=== PATIENT | male | born 1965 | race Caucasian/White ===

== ENCOUNTER 2021-07-03 13:14 | Outpatient (CLI) | payer SELFPAY | END 2021-07-03 13:15 | disposition home or self-care (01) | LOC: WOUND 13:22 | PROVIDERS: Visit Provider Emergency Medicine | DX: L98.8 Other specified disorders of the skin and subcutaneous tissue (principal); F17.210 Nicotine dependence, cigarettes, uncomplicated | CPT/HCPCS: 99212 ==

== ENCOUNTER 2021-12-04 16:34 | Emergency (ER) | payer MEDICAID, SELFPAY ==
[2021-12-04 16:37] VITALS: BP 144/85; PULSE 99; RESP 18; TEMP 36.8; O2SAT 98; BMI 22.8
--- NOTE | 2021-12-04 16:37 | W.ED.PSYCHS ---
Documented by User: Curtis Robins MD 12/16/21 00:33 HPI - Psych General: Chief Complaint: Psychiatric Symptoms Stated Complaint: ETOH, PTSD, DEPRESSION Time Seen by Provider: 12/04/21 16:36 Limitations: altered mental status History of Present Illness: Mr. Manzanares is a 56-year-old gentleman without reported significant past medical history presents to the emergency department for mental health exam. The patient reports a history of depression which has spiraled out of control and approximately 1 year ago he started drinking again. He drinks about a 12 pack of beer a day. 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 Patient denies suicidal or homicidal ideation. He denies history of suicide attempts. Intensity of depression is moderate to severe. No other specific changes in health, exacerbating, or alleviating factors identified. Review of Systems General: Reports: 10 or more systems reviewed and unremarkable except in HPI and below PFSH ED PFSH: Family History Other CAD (coronary artery disease) Denies family history of Diabetes Cancer Hypertension Social History Smoking and tobacco status: current some day smoker Alcohol intake: current Physical Exam Const: COMMON NORMALS: alert GENERAL APPEARANCE: cooperative and well developed HENMT: COMMON NORMALS: normocephalic and atraumatic HEAD & SCALP: normocephalic and atraumatic Eye: COMMON NORMALS: conjunctivae normal CONJUNCTIVA: Yes conjunctivae normal SCLERA: sclerae normal Neck/C-Spine: COMMON NORMALS: supple GENERAL: Yes trachea midline Resp: COMMON NORMALS: normal respiratory effort EFFORT & INSPECTION: Yes able to speak in complete sentences Cardio: COMMON NORMALS: regular rate and regular rhythm RATE: regular rate RHYTHM: regular rhythm GI: COMMON NORMALS: Soft to palpation PALPATION: Yes Soft to palpation and No Tenderness to palpation present (GI) PERCUSSION: normal to percussion Extremity: GENERAL: Yes normal exam except as noted and No edema Neuro: COMMON NORMALS: moves all extremities SENSORIUM/ORIENTATION: Yes alert and No Orientation impaired OTHER: Patient appears clinically intoxicated Course ED course: - Patient was seen and evaluated by me at bedside - Vital signs obtained - Initial evaluation notable for exam as above, mild clinical intoxication - Labs personally interpreted by me - Labs notable for no leukocytosis, normal hemoglobin. Metabolic panel without acute derangement. Toxic ingestions negative with the exception of alcohol level which is 312 mg/dL. - Upon serial reexamination after treatment the patient was somewhat improved with regards to clinical intoxication - Though the patient denies suicidal or homicidal ideation I clarified history with the desk clerks supervisor that he was texting with. It sounds like in most of the text were regarding concern over immune system problems though upon clarification it does not sound like you seroconverted from hepatitis B vaccine. The patient did send a text which led to law enforcement being contacted saying I am just thinking about my . This was not provided with other context per report. Patient did not make other specific statements regarding suicide though seemed erratic and somewhat tangential. - The patient does have access to firearms, does abuse alcohol, and has very limited social support. He endorses hating his current job - Given these factors I believe the patient warrants further psychiatric evaluation. Based on ED evaluation at this point there is no obvious condition that would preclude the patient from inpatient management of psychiatric concerns. - Given his employment here we will pursue outside transfer for inpatient psychiatric management. -Handed off pending accepting facility versus a psychiatry service consult. Note: Click bubbles or prepopulated mercado in note writing are used for assistance with data collection and billing and are inherently more limited than narrative and other text portions of this note. Please use narrative for additional clinical history and defer to narrative/free test for any case of contradictory information. If information appears in only free text or click bubble it should be considered present or absent as reported. Please contact note global technical writer for clarifications of clinical information or contradictory information. MDM is a brief summary, contradictory or erroneous seeming information should be clarified and full note should be reviewed. Vital Signs: Vital signs: Vital Signs Temperature 98.2 F 12/04/21 16:37 Pulse Rate 70 12/05/21 03:26 Respiratory Rate 19 H 12/05/21 07:25 Blood Pressure 144/85 12/04/21 16:37 Pulse Oximetry 100 12/05/21 07:25 Oxygen Delivery Me thod 12/05/21 03:26 MDM - Psych Medical Records I reviewed the patient's medical records. Lab Data I reviewed the patient's lab results. : 12/04/21 17:15 12/04/21 17:15 Laboratory Results WBC 4.8 10^3/uL (4.0-10.0) 12/04/21 17:15 RBC 4.41 10^6/uL (4.1-5.3) 12/04/21 17:15 Hgb 14.5 g/dL (11.7-16.6) 12/04/21 17:15 Hct 43.5 % (42.0-52.0) 12/04/21 17:15 MCV 98.6 fl (80-94) H 12/04/21 17:15 MCH 32.9 pg (28.0-34.0) 12/04/21 17:15 MCHC 33.3 g/dL (30.0-36.0) 12/04/21 17:15 RDW 13.4 % (12.1-15.1) 12/04/21 17:15 Plt Count 252 10^3/cmm (130-400) 12/04/21 17:15 MPV 9.9 fL (7.4-10.4) 12/04/21 17:15 Neut % (Auto) 43.0 % 12/04/21 17:15 Lymph % (Auto) 40.0 % 12/04/21 17:15 [place] % (Auto) 5.7 % 12/04/21 17:15 Eos % (Auto) 9.9 % 12/04/21 17:15 Baso % (Auto) 1.0 % 12/04/21 17:15 Neut # (Auto) 2.05 10^3/uL (1.8-7.7) 12/04/21 17:15 Lymph # (Auto) 1.9 10^3/uL (0.8-4.8) 12/04/21 17:15 [place] # (Auto) 0.3 10^3/uL (0.2-0.9) 12/04/21 17:15 Eos # (Auto) 0.5 10^3/uL (0.0-0.8) 12/04/21 17:15 Baso # (Auto) 0.1 10^3/uL (0.0-0.1) 12/04/21 17:15 Nucleated RBC % (auto) 0 % 12/04/21 17:15 Nucleated RBCs # 0.0 /100WBC 12/04/21 17:15 Sodium 141 mmol/L (136-145) 12/04/21 17:15 Potassium 3.9 mmol/L (3.5-5.1) 12/04/21 17:15 Chloride 102 mmol/L (98-107) 12/04/21 17:15 Carbon Dioxide 25 mmol/L (22-29) 12/04/21 17:15 Anion Gap 17.9 (5-19) 12/04/21 17:15 BUN 8 mg/dL (6-20) 12/04/21 17:15 Creatinine 0.7 mg/dL (0.7-1.2) 12/04/21 17:15 GFR Calculation 117.5 mL/min (90-130) 12/04/21 17:15 Glucose 106 mg/dL (65-115) 12/04/21 17:15 Calculated Osmolality 291 mOsm/kg (285-295) 12/04/21 17:15 Calcium 8.8 mg/dL (8.5-10.5) 12/04/21 17:15 Total Bilirubin 0.2 mg/dL (0.15-1.2) 12/04/21 17:15 AST 32 U/L (0-40) 12/04/21 17:15 ALT 11 U/L (0-41) 12/04/21 17:15 Alkaline Phosphatase 80 IU/L (40-130) 12/04/21 17:15 Total Protein 7.9 g/dL (6.6-8.7) 12/04/21 17:15 Albumin 4.9 g/dL (3.5-5.2) 12/04/21 17:15 Globulin 3.0 g/dL (1.3-4.6) 12/04/21 17:15 TSH 0.88 uIU/mL (0.27-4.20) 12/04/21 17:15 Salicylates < 0.3 mg/dL (3-10) L 12/04/21 17:15 Urine Opiates Screen Negative ng/mL (Negative) 12/04/21 18:05 Acetaminophen < 5.0 ug/mL (10-30) L 12/04/21 17:15 Ur Barbiturates Screen Negative ng/mL (Negative) 12/04/21 18:05 Ur Phencyclidine Scrn Negative ng/mL (Negative) 12/04/21 18:05 Ur Amphetamines Screen Negative ng/mL (Negative) 12/04/21 18:05 U Benzodiazepines Scrn Negative ng/mL (Negative) 12/04/21 18:05 Urine Cocaine Screen Negative ng/mL (Negative) 12/04/21 18:05 U Marijuana (THC) Screen Negative ng/mL (Negative) 12/04/21 18:05 Ethyl Alcohol 312 mg/dL (0-10) H* 12/04/21 17:15 SARS-CoV-2 Ag (Rapid) Negative (Negative) 12/04/21 23:13 Discharge Plan Discharge Patient Disposition: Home Clinical Impression: Alcohol abuse, Depression Condition: Stable Prescriptions: No Action mupirocin 2 % ointment 1 applic topical BID Qty: 22 1RF Rx Instructions: Apply to affected area(s) until healed Otezla Starter 10 mg (4)-20 mg (4)-30 mg (47) tablets,dose pack See Rx Instructions PO PER PKG DIR Qty: 55 0RF Rx Instructions: PO PER PKG DIR Otezla 30 mg tablet 30 mg PO BID Qty: 60 5RF triamcinolone acetonide 0.1 % ointment 1 applic topical BID Qty: 453.6 1RF Rx Instructions: Apply to affected area twice daily for 3 weeks. Not for face. Discharge Orders: Discharge ED (Routine); Ordered 12/05/21 Ordered By: Andres Calvert Patient Instructions: Opioid Safety Activity Restrictions/Additional Instructions: Recommend abstinence from alcohol. Follow-up at [facility] or resume meetings with AA. Sign Out Sign Out Data: Patient Sign Out occurred on 12/05/21 at 06:28. Patient's care was discussed, and care was transferred from to Andres Calvert DO. Coding Level of Care Code ED Loan Servicing Officer for [place] Fwd Exam Comprehensive Documented by User: Andres Calvert DO 12/07/21 06:21 HPI - Psych General: Chief Complaint: Psychiatric Symptoms Stated Complaint: ETOH, PTSD, DEPRESSION Time Seen by Provider: 12/04/21 16:36 PFSH ED PFSH: Family History Other CAD (coronary artery disease) Denies family history of Diabetes Cancer Hypertension Social History Smoking and tobacco status: current some day smoker Alcohol intake: current Course Vital Signs: Vital signs: Vital Signs Temperature 98.2 F 12/04/21 16:37 Pulse Rate 70 12/05/21 03:26 Respiratory Rate 19 H 12/05/21 07:25 Blood Pressure 144/85 12/04/21 16:37 Pulse Oximetry 100 12/05/21 07:25 Oxygen Delivery Me thod 12/05/21 03:26 MDM - Psych Medical Decision Making Care assumed at change of shift. Reviewed chart. Discussed with patient is no longer homicidal or suicidal I discussed with Dr. Zavala he is feel after reviewing the entire case that the patient needs to be admitted at this point. He advises discharge home recommends abstinence. Discussed with patient abstinence from alcohol. Encourage patient to pursue outpatient treatment program such as [facility] or participating in [facility]. Lab Data : 12/04/21 17:15 12/04/21 17:15 Laboratory Results WBC 4.8 10^3/uL (4.0-10.0) 12/04/21 17:15 RBC 4.41 10^6/uL (4.1-5.3) 12/04/21 17:15 Hgb 14.5 g/dL (11.7-16.6) 12/04/21 17:15 Hct 43.5 % (42.0-52.0) 12/04/21 17:15 MCV 98.6 fl (80-94) H 12/04/21 17:15 MCH 32.9 pg (28.0-34.0) 12/04/21 17:15 MCHC 33.3 g/dL (30.0-36.0) 12/04/21 17:15 RDW 13.4 % (12.1-15.1) 12/04/21 17:15 Plt Count 252 10^3/cmm (130-400) 12/04/21 17:15 MPV 9.9 fL (7.4-10.4) 12/04/21 17:15 Neut % (Auto) 43.0 % 12/04/21 17:15 Lymph % (Auto) 40.0 % 12/04/21 17:15 [place] % (Auto) 5.7 % 12/04/21 17:15 Eos % (Auto) 9.9 % 12/04/21 17:15 Baso % (Auto) 1.0 % 12/04/21 17:15 Neut # (Auto) 2.05 10^3/uL (1.8-7.7) 12/04/21 17:15 Lymph # (Auto) 1.9 10^3/uL (0.8-4.8) 12/04/21 17:15 [place] # (Auto) 0.3 10^3/uL (0.2-0.9) 12/04/21 17:15 Eos # (Auto) 0.5 10^3/uL (0.0-0.8) 12/04/21 17:15 Baso # (Auto) 0.1 10^3/uL (0.0-0.1) 12/04/21 17:15 Nucleated RBC % (auto) 0 % 12/04/21 17:15 Nucleated RBCs # 0.0 /100WBC 12/04/21 17:15 Sodium 141 mmol/L (136-145) 12/04/21 17:15 Potassium 3.9 mmol/L (3.5-5.1) 12/04/21 17:15 Chloride 102 mmol/L (98-107) 12/04/21 17:15 Carbon Dioxide 25 mmol/L (22-29) 12/04/21 17:15 Anion Gap 17.9 (5-19) 12/04/21 17:15 BUN 8 mg/dL (6-20) 12/04/21 17:15 Creatinine 0.7 mg/dL (0.7-1.2) 12/04/21 17:15 GFR Calculation 117.5 mL/min (90-130) 12/04/21 17:15 Glucose 106 mg/dL (65-115) 12/04/21 17:15 Calculated Osmolality 291 mOsm/kg (285-295) 12/04/21 17:15 Calcium 8.8 mg/dL (8.5-10.5) 12/04/21 17:15 Total Bilirubin 0.2 mg/dL (0.15-1.2) 12/04/21 17:15 AST 32 U/L (0-40) 12/04/21 17:15 ALT 11 U/L (0-41) 12/04/21 17:15 Alkaline Phosphatase 80 IU/L (40-130) 12/04/21 17:15 Total Protein 7.9 g/dL (6.6-8.7) 12/04/21 17:15 Albumin 4.9 g/dL (3.5-5.2) 12/04/21 17:15 Globulin 3.0 g/dL (1.3-4.6) 12/04/21 17:15 TSH 0.88 uIU/mL (0.27-4.20) 12/04/21 17:15 Salicylates < 0.3 mg/dL (3-10) L 12/04/21 17:15 Urine Opiates Screen Negative ng/mL (Negative) 12/04/21 18:05 Acetaminophen < 5.0 ug/mL (10-30) L 12/04/21 17:15 Ur Barbiturates Screen Negative ng/mL (Negative) 12/04/21 18:05 Ur Phencyclidine Scrn Negative ng/mL (Negative) 12/04/21 18:05 Ur Amphetamines Screen Negative ng/mL (Negative) 12/04/21 18:05 U Benzodiazepines Scrn Negative ng/mL (Negative) 12/04/21 18:05 Urine Cocaine Screen Negative ng/mL (Negative) 12/04/21 18:05 U Marijuana (THC) Screen Negative ng/mL (Negative) 12/04/21 18:05 Ethyl Alcohol 312 mg/dL (0-10) H* 12/04/21 17:15 SARS-CoV-2 Ag (Rapid) Negative (Negative) 12/04/21 23:13 Discharge Plan Discharge Patient Disposition: Home Clinical Impression: Alcohol abuse, Depression Condition: Stable Prescriptions: No Action mupirocin 2 % ointment 1 applic topical BID Qty: 22 1RF Rx Instructions: Apply to affected area(s) until healed Otezla Starter 10 mg (4)-20 mg (4)-30 mg (47) tablets,dose pack See Rx Instructions PO PER PKG DIR Qty: 55 0RF Rx Instructions: PO PER PKG DIR Otezla 30 mg tablet 30 mg PO BID Qty: 60 5RF triamcinolone acetonide 0.1 % ointment 1 applic topical BID Qty: 453.6 1RF Rx Instructions: Apply to affected area twice daily for 3 weeks. Not for face. Discharge Orders: Discharge ED (Routine); Ordered 12/05/21 Ordered By: Andres Calvert Patient Instructions: Opioid Safety Activity Restrictions/Additional Instructions: Recommend abstinence from alcohol. Follow-up at [facility] or resume meetings with AA. Sign Out Sign Out Data: Patient Sign Out occurred on 12/05/21 at 06:28. Patient's care was discussed, and care was transferred from to Andres Calvert DO. Coding Level of Care Code ED Loan Servicing Officer for [place] Fwd Exam Comprehensive
[2021-12-04 17:19] LABS: Basophils # 0.1 10^3/uL (0.0-0.1); Eosinophils # 0.5 10^3/uL (0.0-0.8); Eosinophils % 9.9 %; Hematocrit 43.5 % (42.0-52.0); Hemoglobin 14.5 g/dL (11.7-16.6); Lymphocytes # 1.9 10^3/uL (0.8-4.8); Mean Corpuscular HGB Conc 33.3 g/dL (30.0-36.0); Mean Corpuscular Hemoglobin 32.9 pg (28.0-34.0); Mean Corpuscular Volume 98.6 fl (80-94); Mean Platelet Volume 9.9 fL (7.4-10.4); Monocytes # 0.3 10^3/uL (0.2-0.9); Monocytes % 5.7 %; Neutrophils # 2.05 10^3/uL (1.8-7.7); Nucleated Red Blood Cells % 0 %; Platelet Count 252 10^3/cmm (130-400); Red Blood Count 4.41 10^6/uL (4.1-5.3); Red Cell Distribution Width 13.4 % (12.1-15.1); White Blood Count 4.8 10^3/uL (4.0-10.0)
[2021-12-04 17:54] LABS: Alanine Aminotransferase 11 U/L (0-41); Albumin Level 4.9 g/dL (3.5-5.2); Alkaline Phosphatase 80 IU/L (40-130); Anion Gap 17.9 (5-19); Aspartate Amino Transferase 32 U/L (0-40); Blood Urea Nitrogen 8 mg/dL (6-20); Calcium 8.8 mg/dL (8.5-10.5); Carbon Dioxide 25 mmol/L (22-29); Chloride 102 mmol/L (98-107); Glomerular Filtration Rate 117.5 mL/min (90-130); Glucose 106 mg/dL (65-115); Osmolality Calculated 291 mOsm/kg (285-295); Potassium 3.9 mmol/L (3.5-5.1); Sodium 141 mmol/L (136-145); Thyroid Stimulating Hormone 0.88 uIU/mL (0.27-4.20); Total Bilirubin 0.2 mg/dL (0.15-1.2); Total Protein 7.9 g/dL (6.6-8.7)
[2021-12-04 17:57] LABS: Acetaminophen < 5.0 ug/mL (10-30); Salicylate < 0.3 mg/dL (3-10)
[2021-12-04 18:00] LABS: Alcohol Level 312 mg/dL (0-10)
[2021-12-04 18:42] LABS: Amphetamines Screen Urine Negative (Negative); Barbiturates Screen Urine Negative (Negative); Benzodiazepines Screen Urine Negative (Negative); Cocaine Screen Urine Negative (Negative); Opiate Screen Urine Negative (Negative); PCP Screen Urine Negative (Negative); THC Screen Urine Negative (Negative)
--- NOTE | 2021-12-04 23:17 | PC.NURSE ---
clarified with dr hopper that patient is being placed for psychiatric care, and that if he attempted to leave, he will be placed on an involuntary hold.
[2021-12-04 23:38] LABS: SARS Covid-2 Antigen Negative (Negative)
[2021-12-05 03:26] VITALS: PULSE 70; RESP 17; O2SAT 100
[2021-12-05 07:25] VITALS: RESP 19; O2SAT 100
== END 2021-12-05 07:26 | disposition home or self-care (01) ==
PROVIDERS: Emergency Medicine; Emergency Provider Family Medicine; PCP Nurse Practitioner Family
DX: F10.10 Alcohol abuse, uncomplicated (principal); Y90.8 Blood alcohol level of 240 mg/100 ml or more; F32.A Depression, unspecified; Z20.822 Contact with and (suspected) exposure to COVID-19; F17.210 Nicotine dependence, cigarettes, uncomplicated
CPT/HCPCS: 80053; 80306; 80307; 84443; 85025; 87426; 99284

== ENCOUNTER 2025-02-17 07:08 | Inpatient (IN) | payer MEDICAID, SELFPAY ==
[2025-02-17] VITALS (16 sets, daily range): BP systolic 115–174; BP diastolic 72–105; PULSE 85–109; RESP 16–18; TEMP 36.7–37.1; O2SAT 92–98; BMI 22.8; BMI 26.8
--- OUTSIDE RECORDS SUMMARY | 2025-02-17 07:12 | XMS_ITS | Clinical Summary ---
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 Very hard 07/07/2021 Food Insecurity Answer Date Recorded In the past 12 months, have you worried that your food would run out before you had money to buy more? Often true 07/07/2021 In the past 12 months, did y ou run out of food and didn't have money to buy more? Often true 07/07/2021 Transportation Needs Answer Date Record ed In the past 12 months, has l ack of transportation kept you from medical appointments or from getting medications? Yes 07/07/2021 In the past 12 months, has l ack of transportation kept you from meetings, work, or from getting things needed for daily living? Patient declined 07/07/2021 Housing Stability Answer Date Recorded In the last 12 months, was t here a time when you were not able to pay the mortgage or rent on time? Yes 07/08/19 22 Number of Times Moved in the Last Year Not on fi le 07/07/2021 At any time in the past 12 m [facility], were you homeless or living in a prison (including now)? Patient refused 07/07/2021 Sex and Gender Information Value Date Recorded Sex Assigned at Not on file Legal Sex Male 2:41 PM HAND ROLLER Gender Identity Not on file Sexual Orientation Not on file Last Filed Vital Signs Vital Sign Reading Time Taken Comments Blood Pressure 142/80 07/04/2021 2:45 PM HAND ROLLER Pulse 99 07/04/2021 2:45 PM HAND ROLLER Temperature 37.3 C (99.1 F) 07/04/2021 2:45 PM HAND ROLLER Respiratory Rate 18 07/04/2021 2:45 PM HAND ROLLER Oxygen Saturation 100% 07/04/2021 2:45 PM HAND ROLLER Inhaled Oxygen Concentration - - Weight 65.8 kg (145 lb) 07/04/2021 2:45 PM HAND ROLLER Height - - Body Mass Index - - Plan of Treatment Health Maintenance Due Date Last Done Comments DTAP/TDAP/TD VACCINES (1 - Tdap) 11/23/1986 HEPATITIS B VACCINES (1 of 3 - 19+ 3-dose series) 11/01 COLORECTAL SCREENING 11/23/2012 Colorectal Cancer Screening 11/23/2012 FIT-DNA Q 3 years 11/23/2012 FIT/FOBT Q 1 year 11/23/2012 Flex Sig/CT Colonography Q 5 years 11/23/2012 ZOSTER VACCINE (1 of 2) 11/23/2017 INFLUENZA VACCINE (#1) 2024
--- NOTE | 2025-02-17 07:15 | XRR_ITS ---
PROCEDURE INFORMATION: Exam: XR Left Foot Exam date and time: 02/17/2025 7:18 AM Age: 59 years old Clinical indication: Swelling, leg or foot; Big toe swollen; Additional info: Great toe infection TECHNIQUE: Imaging protocol: Radiologic exam of the left foot. Views: 3 or more views. COMPARISON: No relevant prior studies available. FINDINGS: Bones/joints: See Soft tissues finding. Soft tissues: There is a retained curvilinear metallic foreign body in the plantar aspect of the 1st digit measuring 7 mm with surrounding soft tissue gas and swelling. Multiple additional smaller apparent calcifications superimposed within the plantar soft tissues. There is mild cortical obscuration of the medial aspect of the 1st digit proximal phalangeal head and distal phalangeal base. Underlying advanced degenerative changes of the 1st IP joint. There are moderate degenerative changes of the 1st MTP joint. XR/XR foot LT min 3V* [id number] IMPRESSION: 1. Retained 7 mm curvilinear metallic foreign body in the plantar soft tissues of the 1st digit with surrounding soft tissue gas and swelling as well as small calcifications, likely additional foreign material versus dystrophic change. 2. Mild cortical irregularity of the proximal and distal phalanges of the 1st digit, possibly reactive or infectious. Early osteomyelitis cannot be excluded. 3. Advanced degenerative changes of the 1st IP and MTP joints. 4. MRI and/or surgical evaluation may be warranted based on clinical context.
--- NOTE | 2025-02-17 07:18 | ED_ITS ---
HPI - Wound/Laceration 2 General: Chief Complaint: Wound/Laceration Stated Complaint: left great toe infection Time Seen by Provider: 02/17/25 07:10 History of Present Illness: 59-year-old man with a history of anxiet y and depression who presents emergency room with left great toe pain. He said he had a callus that he pulled off about 3 months ago and it has been getting worse and worse. The toe started swelling and then became more painful. He says today he realized that it was out of his hands and so he called an ambulance. Apparently had to walk half a mile down his driveway because it was washed out to get to the ambulance. No fevers. No altered mental status. No chest pain. No abdominal pain no nausea or vomiting. Related Data Previous Rx's ?Medication ?Instructions ?Recorded clobetasol 0.05 % topical ointment 1 applic topical BI D 2 weeks #60 06/23/22 grams mupirocin 2 % topical ointment 1 applic topical BID #2 2 grams 06/23/22 triamcinolone acetonide 0.1 % 1 applic topical BID #45 3.6 grams 06/23/22 topical ointment trazodone 50 mg tablet 100 mg (2 x 50 mg) PO .HS LA N 11/17/23 insomnia #60 tabs aripiprazole 2 mg tablet (Abilify) 2 mg PO DAILY #30 t abs 08/23/24 sertraline 100 mg tablet (Zoloft) 150 mg (1.5 x 100 mg ) PO DAILY #45 08/23/24 tabs Allergies Allergy/AdvReac Type Severity Reaction Status Date / Time fluoxetine (From Prozac) Allergy Intermediate ADR-Nausea Verified 08/23/24 14:51 Review of Systems 2 Narrative: Constitutional symptoms: Negative except as documented in HPI. Skin symptoms: Negative except as documented in HPI. Eye symptoms: Negative except as documented in HPI. ENMT symptoms: Negative except as documented in HPI. Respiratory symptoms: Negative except as documented in HPI. Cardiovascular symptoms: Negative except as documented in HPI. Gastrointestinal symptoms: Negative except as documented in HPI. Genitourinary symptoms: Negative except as documented in HPI. Musculoskeletal symptoms: Negative except as documented in HPI. Neurologic symptoms: Negative except as documented in HPI. Psychiatric symptoms: Negative except as documented in HPI. Endocrine symptoms: Negative except as documented in HPI. [facility] ED 2 PFSH: Medical History (Updated 02/17/25 @ 08:16 by Rossi Mtz MD) Psychiatric care Surgical History No pertinent past surgical history Family History Other CAD (coronary artery disease) Denies family history of Diabetes Cancer Hypertension Social History Smoking and tobacco/nicotine status: former use of tobacco/nicotine Alcohol intake: current Physical Exam 2 Narrative: EXAM NARRATIVE: General: Alert, no acute distress. Skin: Warm, dry. Head: Normocephalic, atraumatic. Neck: Supple, trachea midline. Eye: Extraocular movements are intact. Ears, nose, mouth and throat: mucosa moist. Cardiovascular: Regular, Normal peripheral perfusion. Respiratory: Lungs are clear to auscultation, respirations are non-labored, breath sounds are equal, Symmetrical chest wall expansion. Gastrointestinal: Soft, Nontender, Non distended Musculoskeletal: Normal ROM, no deformity. Neurological: Alert and oriented, No focal neurological deficit observed. Psychiatric: Cooperative, appropriate mood & affect. Course 2 Vital Signs: Vital signs: Vital Signs Temperature 98.2 F 02/17/25 07:10 Pulse Rate 97 02/17/25 07:39 Respiratory Rate 17 02/17/25 07:10 Blood Pressure 135/97 02/17/25 07:39 Pulse Oximetry 98 02/17/25 07:39 Oxygen Delivery Me thod Room Air 02/17/25 07:10 MDM - Wound/Laceration Medical Decision Making Medical decision making: Differential diagnosis including but not limited to and based on the above HPI, review of systems and physical exam: In this patient with toe infection would have concern for osteomyelitis or systemic infection. Basic labs and inflammatory markers are being obtained. Orders placed to evaluate differential diagnosis based on the above differential, HPI and physical exam X-ray of the right foot: Apparent metallic foreign body with destructive disease to the distal great toe. Appears to have osteomyelitis. Films were interpreted by myself the emergency room provider and pending final radiology review. Lab Review: Laboratory results were reviewed and interpreted by myself the emergency room physician. No leukocytosis but patient does have elevated CRP at 30 and ESR at 59. Lactate is not elevated. Renal function is normal. No anemia. I reviewed the patient's medical record. Reexamination: Patient remained stable. No increased work of breathing. No altered mental status. No focal motor deficits. Consultation: I spoke with Dr. Terry who is on-call for podiatry. He recommends Vanco and Zosyn. He has cultured the toe. Admit to hospitalist and he will likely operate on Wednesday Consultation: I spoke with Dr. Crisostomo who is on-call for the hospitalist service who agrees to admission Assessment and plan: Great toe osteomyelitis ?IV vancomycin and Zosyn in the emergency room -I discussed the patient with the hospitalist on-call who is admitting the patient. - Discussed findings and plan with patient. Answered any questions. - All laboratory values were reviewed and interpreted personally by myself, the ER physician - All imaging was reviewed and interpreted personally by myself, the ER physician. - Evaluation and treatment of this problem were appropriate in the emergency setting Lab Data 02/17/25 07:22 02/17/25 07:22 Laboratory Results WBC 6.72 10^3/uL (3.29-11.43) 02/17/25 07:22 RBC 4.78 10^6/uL (3.85-5.65) 02/17/25 07:22 Hgb 14.80 g/dL (11.27-16.99) 02/17/25 07:22 Hct 44.0 % (37-53) 02/17/25 07:22 MCV 92.1 fl (82-101) 02/17/25 07:22 MCH 31.0 pg (27-33) 02/17/25 07:22 MCHC 33.6 g/dL (30-55) 02/17/25 07:22 RDW 13.4 % (12.1-15.1) 02/17/25 07:22 Plt Count 282 10^3/cmm (157-399) 02/17/25 07:22 MPV 10.2 fL (7.4-10.4) 02/17/25 07:22 Neut % (Auto) 48.9 % 02/17/25 07:22 Lymph % (Auto) 31.1 % 02/17/25 07:22 Glascock % (Auto) 11.3 % 02/17/25 07:22 Eos % (Auto) 7.9 % 02/17/25 07:22 Baso % (Auto) 0.4 % 02/17/25 07:22 Neut # (Auto) 3.28 10^3/uL (1.8-7.7) 02/17/25 07:22 Lymph # (Auto) 2.1 10^3/uL (0.8-4.8) 02/17/25 07:22 Glascock # (Auto) 0.8 10^3/uL (0.2-0.9) 02/17/25 07:22 Eos # (Auto) 0.5 10^3/uL (0.0-0.8) 02/17/25 07: Baso # (Auto) 0.0 10^3/uL (0.0-0.1) 02/17/25 07:22 Nucleated RBC % (auto) 0 % 02/17/25 07: Nucleated RBCs # 0.0 /100WBC 02/17/25 07:22 ESR 59 mm/hr (0-10) H 02/17/25 07:22 Sodium 134 mmol/L (136-145) L 02/17/25 07:22 Potassium 4.0 mmol/L (3.5-5.1) 02/17/25 07:22 Chloride 98 mmol/L (98-107) 02/17/25 07:22 Carbon Dioxide 19 mmol/L (22-29) L 02/17/25 07:22 Anion Gap 21.0 (5-19) H 02/17/25 07:22 BUN 8 mg/dL (6-20) 02/17/25 07:22 Creatinine 0.7 mg/dL (0.7-1.2) 02/17/25 07:22 GFR Calculation 116.2 mL/min (90-130) 02/17/25 07:22 Glucose 126 mg/dL (65-115) H 02/17/25 07:22 Calculated Osmolality 278 mOsm/kg (285-295) L 02/17/25 07:22 Lactic Acid 2.1 mmol/L (0.5-2.2) 02/17/25 07:22 Calcium 9.0 mg/dL (8.5-10.5) 02/17/25 07:22 Total Bilirubin 0.3 mg/dL (0.15-1.2) 02/17/25 07:22 AST 36 U/L (0-40) 02/17/25 07:22 ALT 8 U/L (0-41) 02/17/25 07:22 Alkaline Phosphatase 136 U/L (40-130) H 02/17/25 07:22 C-Reactive Protein 30.6 mg/L (0.0-4.9) H 02/17/25 07:22 Total Protein 8.0 g/dL (6.6-8.7) 02/17/25 07:22 Albumin 4.0 g/dL (3.5-5.2) 02/17/25 07:22 Globulin 4.0 g/dL (1.3-4.6) 02/17/25 07:22 XR interpretation done by ED provider, pending radiology final review Discharge Plan Discharge Patient Disposition: Admitted As Inpatient Admit Provider: Nicole Crisostomo Clinical Impression: Right hallux osteomyelitis Condition: Stable Coding Level of Care Code ED Computer Aided Drafter for Israel Eller
[2025-02-17 07:38] LABS: Hematocrit 44.0 % (37-53); Hemoglobin 14.80 g/dL (11.27-16.99); Mean Corpuscular HGB Conc 33.6 g/dL (30-55); Mean Corpuscular Hemoglobin 31.0 pg (27-33); Mean Corpuscular Volume 92.1 fl (82-101); Nucleated Red Blood Cells % 0 %; Platelet Count 282 10^3/cmm (157-399); Red Blood Count 4.78 10^6/uL (3.85-5.65); White Blood Count 6.72 10^3/uL (3.29-11.43)
[2025-02-17 07:52] LABS: Lactic Sepsis W/Reflex 2.1 mmol/L (0.5-2.2)
[2025-02-17 07:53] LABS: Alanine Aminotransferase 8 U/L (0-41); Albumin Level 4.0 g/dL (3.5-5.2); Alkaline Phosphatase 136 U/L (40-130); Anion Gap 21.0 (5-19); Aspartate Amino Transferase 36 U/L (0-40); Blood Urea Nitrogen 8 mg/dL (6-20); Calcium 9.0 mg/dL (8.5-10.5); Carbon Dioxide 19 mmol/L (22-29); Chloride 98 mmol/L (98-107); Creatinine Clr Calc Pharmacy 112.4051; Globulin 4.0 g/dL (1.3-4.6); Glucose 126 mg/dL (65-115); Osmolality Calculated 278 mOsm/kg (285-295); Potassium 4.0 mmol/L (3.5-5.1); Sodium 134 mmol/L (136-145); Total Protein 8.0 g/dL (6.6-8.7)
[2025-02-17 07:55] LABS: Reflex Lactate Order REFLEX LACTIC ORDERD
--- NOTE | 2025-02-17 08:04 | PM.CONSULT ---
Providers/Reason For Consult Consulting Physician/Specialty*: Morro BirchPJcarlos/podiatry Reason for Consult*: Right foot wound, osteomyelitis Primary Care Provider: ISAAC Sosa History of Present Illness History of Present Illness Patient is a 59-year-old male who presented to the emergency room earlier this morning with concerns over infection of right great toe. Patient states that approximate 3 months ago he pulled a callus off the bottom of his toe and it has continued to worsen since then. He states that the pain has become much worse which prompted him to present to the emergency department for workup and evaluation. Podiatry was consulted to evaluate and provide treatment recommendations. Review of Systems General: Reports: 10 or more systems reviewed and unremarkable except in HPI and below Const: Denies: fever(s), chills, body aches or change in appetite Eyes: Denies: change in vision or blurry vision Card: Denies: chest pain, palpitations or irregular heart rhythm Resp: Denies: dyspnea GI: Denies: abdominal pain, nausea, vomiting or diarrhea Musc: Reports: joint stiffness Skin/Breast: Reports: non-healing lesions and lesions Neuro: Reports: numbness in extremities Medications/Allergies Home Medications ?Medication ?Instructions ?Recorded ?Confirmed ?Last Taken ?Type trazodone 50 mg tablet 100 mg (2 x 50 mg) PO .HS PRN 11/17/23 02/17/25 Unknown Rx insomnia #60 tabs aripiprazole 2 mg tablet (Abilify) 2 mg PO DAILY #30 tabs 08/23/24 02/17/25 Unknown Rx sertraline 100 mg tablet (Zoloft) 150 mg (1.5 x 100 mg) PO DAILY #45 08/23/24 02/17/25 Unknown Rx tabs triamcinolone acetonide 0.1 % 1 applic topical BID PRN Skin 02/17/25 02/17/25 Unknown History topical ointment Irritation Allergies Allergy/AdvReac Type Severity Reaction Status Date / Time fluoxetine (From Prozac) Allergy Intermediate ADR-Nausea Verified 08/23/24 14:51 PFSH Acute PFSH: Medical History Psychiatric care Surgical History No pertinent past surgical history Family History Other CAD (coronary artery disease) Denies family history of Diabetes Cancer Hypertension Social History Smoking and tobacco/nicotine status: former use of tobacco/nicotine Alcohol intake: current Vitals/I&O/Wt Last Vital Signs Temp 98.2 F 02/17/25 07:10 Pulse 97 02/17/25 07:39 Resp 17 02/17/25 07:10 BP 135/97 02/17/25 07:39 Pulse Ox 98 02/17/25 07:39 O2 Del Method Room Air 02/17/25 07:10 Weight last 48 hrs Weight 150 lb Physical Exam Narrative: BELOW IS A FOCUSED LOWER EXTREMITY EXAM GENERAL: A&O x 3 VASCULAR: DP/PT pulses palpable 2/4 with CFT intact, <3seconds to distal digits DERMATOLOGICAL: Full-thickness ulceration plantar aspect of right hallux at the level of the hallux interphalangeal joint with area of necrosis measuring 1.2 x 1.2 x 0.3 cm. Active serous drainage MUSCULOSKELETAL: Pain to palpation of right hallux periwound area NEUROLOGICAL: Neurological sensation to the affected foot and ankle is present through L4-S1 dermatomes with no hyper/hypoesthesias, negative Tinel or Valleix's sign IMAGING: Three-view x-rays right foot obtained in the emergency department show radiopaque foreign body plantar aspect of hallux interphalangeal joint with increased soft tissue density and erosive changes of the hallux interphalangeal joint consistent with osteomyelitis. Data 02/17/25 07:22 02/17/25 07:22 A&P Assessment and plan 1. Right hallux osteomyelitis: Plan: Right hallux osteomyelitis X-rays taken in the emergency department were independently turbid by me. Labs were reviewed. Both labs and imaging as well as clinical presentation support diagnosis of osteomyelitis. Treatment options were discussed with patient. We will proceed with partial hallux amputation right foot tomorrow 02/18/2025. N.p.o. at midnight. Discharge plan: To be determined PDMP PDMP Reviewed: Not Reviewed Coding Level of Care Code Acute Code for [facility] Fwd Diagnoses Right hallux osteomyelitis M86.9
--- NOTE | 2025-02-17 08:08 | PC.NURSE ---
antibiotics delayed d/t pending blood culture collection
--- NOTE | 2025-02-17 08:17 | PC.NURSE ---
WHEN PT ARRIVED WITH EMS, PT HAD POSSESSION OF A PERSONAL KNIFE. SECURITY NOTIFIED. SECURITY INFORMED PT THAT DUE TO HOSPITAL POLICY, PT PERSONAL KNIFE WOULD BE TAKEN BY SECURITY AND GIVEN BACK WHEN HE IS DISCHARGED. PT VERBALIZED UNDERSTANDING AND WILLINGLY LET SECURITY TAKE HIS KNIFE.
--- NOTE | 2025-02-17 08:30 | PC.NURSE ---
Vanc delayed d/t Zosyn infusing at this time and Vancomycin not being stocked in Pyxis at this time
[2025-02-17] MEDS: piperacillin-tazobactam 4.5 GM in sodium chloride 0.9% (plus) 50 ML IV (08:36)
[2025-02-17 11:18] LABS: Lactic Acid level (Lactate) 1.8 mmol/L (0.5-2.2)
--- OUTSIDE RECORDS SUMMARY | 2025-02-17 12:27 | XMS_ITS | Clinical Summary ---
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
--- NOTE | 2025-02-17 13:05 | P.HP_ITS ---
Providers/Chief Complaint 2 Admitting Physician: Nicole Crisostomo MD Primary Care Provider: ISAAC Sosa Chief Complaint: left great toe infection History of Present Illness Pio Manzanares is a 59 year old male who presented to the emergency room today after having had trauma to the right great toe by pulling of a callus off of it 3 months ago. This affected right toe has been bothering the patient and he had not done anything to where it is till today decided to come to the emergency room for further evaluation. It was noted that the patient now has osteomyelitis of the right great toe with foreign body in it. Emergency room physician Dr. Young consulted podiatry who wanted the patient placed on vancomycin and Zosyn and be admitted for surgery will be tomorrow being February 18, 2025 . Patient had gotten a dose of vancomycin and Zosyn and I have at this time assumed the attending physician I had ordered Zosyn and vancomycin to continue but they pharmacy consultation to dose vancomycin with instructions. Patient did not complain of any pain at this time of my rounds. And he knows to be n.p.o. after midnight tonight for anticipated surgery tomorrow Review of Systems 2 Narrative: System review upon 10 organ review significant for musculoskeletal system with the right great toe infection with osteomyelitis Medications/Allergies Home Medications ?Medication ?Instructions ?Recorded ?Confirmed ?Last Taken ?Type trazodone 50 mg tablet 100 mg (2 x 50 mg) PO .HS NM N 11/17/23 02/17/25 Unknown Rx insomnia #60 tabs aripiprazole 2 mg tablet (Abilify) 2 mg PO DAILY #30 t abs 08/23/24 02/17/25 Unknown Rx sertraline 100 mg tablet (Zoloft) 150 mg (1.5 x 100 mg ) PO DAILY #45 08/23/24 02/17/25 Unknown Rx tabs triamcinolone acetonide 0.1 % 1 applic topical BID PRN Skin 02/17/25 02/17/25 Unknown History topical ointment Irritation Allergies Allergy/AdvReac Type Severity Reaction Status Date / Time fluoxetine (From Prozac) Allergy Intermediate ADR-Nausea Verified 08/23/24 14:51 PFSH Acute 2 PFSH: Medical History Psychiatric care Surgical History No pertinent past surgical history Family History Other CAD (coronary artery disease) Denies family history of Diabetes Cancer Hypertension Social History Smoking and tobacco/nicotine status: former use of tobacco/nicotine Alcohol intake: current Vitals/I&O/Wt Last Vital Signs Temp 98.2 F 02/17/25 07:10 Pulse 89 02/17/25 12:42 Resp 18 02/17/25 10:25 BP 141/83 02/17/25 12:42 Pulse Ox 94 02/17/25 12:42 O2 Del Method Room Air 02/17/25 09:05 02/16/25 02/17/25 02/17/25 22:59 06:59 14:59 Intake Total 450 / 450 Balance 450 / 450 Weight last 48 hrs Weight 80.002 kg Weight 68.039 kg Physical Exam 2 Narrative: Patient is wheelchair for disposition and very pleasant HEENT normocephalic atraumatic neck neck is supple cardiovascular heart rate is regular lungs are pretty much clear abdomen soft nontender nondistended unremarkable extremities are intact no edema has good pulses neurology has no focality lab studies lab studies reviewed and noted Data 02/17/25 07:22 02/17/25 07:22 Micro: Microbiology 02/17/25 08:20 Blood Culture - Preliminary Blood SPECIMEN COLLECTED 02/17/25 08:22 Blood Culture - Preliminary Blood SPECIMEN COLLECTED A&P Assessment and plan 1. Right hallux osteomyelitis: 2. Generalized anxiety disorder: 3. Major depressive disorder, recurrent severe without psychotic features: 4. Alcohol use disorder, moderate, dependence: 5. Plaque psoriasis: Plan: Right hallux osteomyelitis - Antibiotics initiated with vancomycin and Zosyn - Patient stay n.p.o. after 12 midnight for surgery - Podiatry consulted from the emergency room by the emergency room attending - Continue antibiotics - Patient is ready for surgery in the morning and aware. - Pain medication available when needed Chronic illness such as-anxiety disorder/major depressive disorder without psychosis/alcohol dependence/psoriasis -- Patient to continue home medication on days - Please update medication for reconciliation PDMP PDMP Reviewed: Not Reviewed Attestations 2 Medical Necessity Statement*: Patient is with osteomyelitis will need at least 2 midnights for optimization of care Coding Level of Care Code 46756 Diagnoses Right hallux osteomyelitis M86.9 Generalized anxiety disorder F41.1 Major depressive disorder, recurrent severe without psychotic features F33.2 Alcohol use disorder, moderate, dependence F10.20 Plaque psoriasis L40.0 Time Spent (min) 60
[2025-02-17] MEDS: piperacillin-tazobactam 3.375 GM in sodium chloride 0.9% (plus) 50 ML IV ×2 (13:48→23:36)
[2025-02-17] MEDS: pantoprazole 40 mg SDV IVP (13:50)
[2025-02-17] MEDS: heparin 5,000 unit/mL INJ 1 mL 5000 UNIT SUBCUT (13:50)
[2025-02-18] VITALS (21 sets, daily range): BP systolic 110–186; BP diastolic 71–105; PULSE 67–86; RESP 10–20; TEMP 36.3–36.8; O2SAT 94–100
[2025-02-18] MEDS: heparin 5,000 unit/mL INJ 1 mL 5000 UNIT SUBCUT ×2 (01:18→12:31)
[2025-02-18] MEDS: morphine 4 mg/mL SDV 1 mL IVP ×3 (01:19→21:54)
[2025-02-18 05:51] LABS: Hematocrit 46.2 % (37-53); Hemoglobin 14.90 g/dL (11.27-16.99); Mean Corpuscular HGB Conc 32.3 g/dL (30-55); Mean Corpuscular Hemoglobin 31.1 pg (27-33); Mean Corpuscular Volume 96.5 fl (82-101); Nucleated Red Blood Cells % 0 %; Platelet Count 246 10^3/cmm (157-399); Red Blood Count 4.79 10^6/uL (3.85-5.65); White Blood Count 7.82 10^3/uL (3.29-11.43)
[2025-02-18 06:15] LABS: Alanine Aminotransferase 8 U/L (0-41); Albumin Level 4.0 g/dL (3.5-5.2); Alkaline Phosphatase 122 U/L (40-130); Anion Gap 18.4 (5-19); Aspartate Amino Transferase 27 U/L (0-40); Blood Urea Nitrogen 11 mg/dL (6-20); Calcium 8.6 mg/dL (8.5-10.5); Carbon Dioxide 23 mmol/L (22-29); Chloride 104 mmol/L (98-107); Creatinine Clr Calc Pharmacy 105.8319; Globulin 3.1 g/dL (1.3-4.6); Glucose 113 mg/dL (65-115); Magnesium 2.0 mg/dL (1.7-2.3); Osmolality Calculated 292 mOsm/kg (285-295); Potassium 4.4 mmol/L (3.5-5.1); Sodium 141 mmol/L (136-145); Total Protein 7.1 g/dL (6.6-8.7)
--- NOTE | 2025-02-18 07:11 | PC.NURSE ---
Patient left medical floor for surgery at 0645.
--- NOTE | 2025-02-18 07:51 | P.HPUD_ITS ---
Surgery/Procedure H&P Update DATE OF PROCEDURE: February 18, 2025 DATE H&P PERFORMED: 02/17/25 H&P UPDATE INFORMATION: I have reviewed H&P completed within last 30 days, I have examined patient prior to procedure, No changes to prior documentation, H&P is in [facility] EMR on date indicated and Risks and benefits of the procedure reviewed PLANNED PROCEDURE: Operation Date: 02/18/25 09:10 Proposed Procedures p Amputation Toe/s Hallux Amputation(Right) - Hudson Terry DPM
--- NOTE | 2025-02-18 08:33 | P.ANESASSM_ITS ---
Pre-Anesthetic Assessment Height/Weight: Height 5 ft 8 in Weight 178 lb 9.6 oz Temp Pulse Resp BP Pulse Ox O2 Del Method 97.4 F L 74 20 H 184/103 97 Room Air 02/18/25 06:50 02/18/25 06:50 02/18/25 06:50 02/18/25 06:50 02/18/25 06:50 02/18/25 06:50 Preop Diagnosis: Hallux osteomyelitis Operation Date: 02/18/25 09:10 Proposed Procedures p Amputation Toe/s Hallux Amputation(Right) - Hudson Terry DPM Was Beta Saman taken within 24 hours: N/A Was Clonidine taken within 24 hours: N/A Last intake: Intake Last Liquid Date 02/17/25 Last Liquid Time 23:59 Last Solid Date 02/17/25 Last Solid Time 23:59 Social Tobacco and No alcohol Exam alert, oriented x 3, clear to auscultation bilaterally and regular rate & rhythm Airway Submandibular: within normal limits Cervical ROM: within normal limits Mallampati: Class III Dentition: full Comments: Comments: Denies any loose teeth Anesthetic Plan ASA status: 2 Anesthesia: General Other: No prior issues with anesthesia NPO since yesterday evening Current smoker Denies any cardiac issues Labs reviewed from today and acceptable for procedure Plan for general anesthesia with local via surgeon Medications/Allergies Home Medications ?Medication ?Instructions ?Recorded ?Confirmed ?Last Taken ?Type trazodone 50 mg tablet 100 mg (2 x 50 mg) PO .HS CA N 11/17/23 02/17/25 Unknown Rx insomnia #60 tabs aripiprazole 2 mg tablet (Abilify) 2 mg PO DAILY #30 t abs 08/23/24 02/17/25 Unknown Rx sertraline 100 mg tablet (Zoloft) 150 mg (1.5 x 100 mg ) PO DAILY #45 08/23/24 02/17/25 Unknown Rx tabs triamcinolone acetonide 0.1 % 1 applic topical BID PRN Skin 02/17/25 02/17/25 Unknown History topical ointment Irritation Allergies Allergy/AdvReac Type Severity Reaction Status Date / Time fluoxetine (From Prozac) Allergy Intermediate ADR-Nausea Verified 08/23/24 14:51 Current Medications Generic Name Dose Route Start Last Admin Trade Name Freq PRN Reason Stop Dose Admin Heparin Sodium (Porcine) 5,000 unit 02/17/25 13:00 02/18/25 01:18 Heparin 5,000 Unit/Ml Inj 1 Ml SUBCUT 5,000 unit Q12H ELLE Administration Sodium Chloride 1,000 mls @ 100 mls/hr 02/17/25 13:00 02/17/25 21:52 Sodium Chloride 0.9% IV 100 mls/hr .Q10H ELLE Administration Piperacillin Sod/Tazobactam 50 mls @ 12.5 mls/hr 02/17/25 14:30 02/18/25 03:31 Sod 3.375 gm/ Sodium Chloride IV Infused Q8H ELLE Infusion Protocol Vancomycin HCl 1,500 mg in 300 mls @ 200 mls/hr 02/17/25 21:00 02/17/25 23:23 Vancocin IV Infused Q12H ELLE Infusion Ketorolac Tromethamine 30 mg 02/17/25 13:00 02/18/25 01:18 Ketorolac 30 Mg/Ml Inj IVP 02/22/25 12:59 30 mg Q6H ELLE Administration Morphine Sulfate 4 mg 02/17/25 12:58 02/18/25 01:19 Morphine 4 Mg/Ml Sdv 1 Ml IVP 4 mg Q4H PRN Administration SEVERE PAIN Pantoprazole Sodium 40 mg 02/17/25 13:00 02/17/25 13:50 Pantoprazole 40 Mg Sdv IVP 40 mg Q24H ELLE Administration PFSH Anesthesia Medical History Psychiatric care Surgical History No pertinent past surgical history Family History Other CAD (coronary artery disease) Denies family history of Diabetes Cancer Hypertension Social History Smoking and tobacco/nicotine status: former use of tobacco/nicotine Alcohol intake: current Data Anesthesia 02/18/25 04:41 02/18/25 04:41 Short CBC 02/17/25 02/18/25 Range/Units 07:22 04:41 WBC 6.72 7.82 (3.29-11.43) 10^3/uL Hgb 14.80 14.90 (11.27-16.99) g/dL Hct 44.0 46.2 (37-53) % MCV 92.1 96.5 (82-101) fl Plt Count 282 246 (157-399) 10^3/cmm Neut % (Auto) 48.9 69.1 % Neut # (Auto) 3.28 5.41 (1.8-7.7) 10^3/uL BMP 02/17/25 02/18/25 07:22 04:41 Sodium 134 L 141 Potassium 4.0 4.4 Chloride 98 104 Carbon Dioxide 19 L 23 BUN 8 11 Creatinine 0.7 0.8 Glucose 126 H 113 Calcium 9.0 8.6 Liver Function 02/17/25 02/18/25 Range/Units 07:22 04:41 Total Bilirubin 0.3 0.6 (0.15-1.2) mg/dL AST 36 27 (0-40) U/L ALT 8 8 (0-41) U/L Alkaline Phosphatase 136 H 122 (40-130) U/L Albumin 4.0 4.0 (3.5-5.2) g/dL Coags 02/17/25 07:22 ESR 59 H C-Reactive Protein 30.6 H Microbiology 02/17/25 08:22 Blood Culture - Preliminary Blood NEGATIVE TO DATE 02/17/25 08:20 Blood Culture - Preliminary Blood NEGATIVE TO DATE
[2025-02-18] MEDS: BUPivacaine 0.5% INJ 30 mL INJECTION (09:50)
--- NOTE | 2025-02-18 10:20 | W.PM.BPON ---
Date of procedure: 02/18/2025 Surgeon name: Dr. Hudson Terry D.P.M. Marina Dry Dock Manager(s) name(s): Sloan Wiley Procedure(s) performed: Partial right hallux amputation Description of findings: Osteomyelitis Estimated blood loss: 5 cc Tourniquet time: 14 minutes Specimen(s) removed: Distal right hallux, proximal margin of right hallux phalanx Post-operative diagnosis: Osteomyelitis
--- NOTE | 2025-02-18 11:22 | PC.NURSE ---
1110 - accepted into room 263 with HOWARD Olea at side - pt in no distress upon this nurse exiting care
[2025-02-18] MEDS: pantoprazole 40 mg SDV IVP (12:31)
[2025-02-18] MEDS: piperacillin-tazobactam 3.375 GM in sodium chloride 0.9% (plus) 50 ML IV ×2 (14:17→21:56)
--- NOTE | 2025-02-18 15:21 | PHA.VACGOAL ---
Vancomycin Goal - Goal Vancomycin Goal:: 15-20 mg/L Vancomycin Indication:: Osteo - Therapy Current therapy:: Pip/Tazo Day of therpy:: Day [1]of [] . Actual body weight (kg): 81.012 kg - Data Labs: WBC 7.82 10^3/uL (3.29-11.43) 02/18/25 04:41 RBC 4.79 10^6/uL (3.85-5.65) 02/18/25 04:41 Hgb 14.90 g/dL (11.27-16.99) 02/18/25 04:41 Hct 46.2 % (37-53) 02/18/25 04:41 MCV 96.5 fl (82-101) 02/18/25 04:41 MCH 31.1 pg (27-33) 02/18/25 04:41 MCHC 32.3 g/dL (30-55) 02/18/25 04:41 RDW 13.5 % (12.1-15.1) 02/18/25 04:41 Sodium 141 mmol/L (136-145) 02/18/25 04:41 Potassium 4.4 mmol/L (3.5-5.1) 02/18/25 04:41 Chloride 104 mmol/L (98-107) 02/18/25 04:41 Carbon Dioxide 23 mmol/L (22-29) 02/18/25 04:41 Anion Gap 18.4 (5-19) 02/18/25 04:41 BUN 11 mg/dL (6-20) 02/18/25 04:41 Creatinine 0.8 mg/dL (0.7-1.2) 02/18/25 04:41 GFR Calculation 99.6 mL/min (90-130) 02/18/25 04:41 Treatment plan:: new consult Regimen:: New start vancomycin for Osteomyelitis. No prior vancomycin history found. Patient received 2000 mg loading dose. Started on maintenance dose of 1500 mg q12h. Vancomycin trough ordered for @1100 on 02/19.
--- NOTE | 2025-02-18 16:26 | P.PN_ITS ---
Subjective 2 Subjective: Patient looks good verbalized that going through this surgery was as easy as anything. All he knew he went to sleep and was woken up that the surgery is over and he is feeling good he said. Vitals/I&O/Wt Last Vital Signs Temp 97.8 F 02/18/25 14:16 Pulse 74 02/18/25 14:16 Resp 18 02/18/25 14:16 BP 162/87 02/18/25 14:16 Pulse Ox 98 02/18/25 14:16 O2 Del Method Room Air 02/18/25 14:16 O2 Flow Rate 8 02/18/25 10:37 02/18/25 02/18/25 02/18/25 06:59 14:59 22:59 Intake Total 350 / 9953.100 6572 / 1830 Output Total 400 / 600 1605 / 1605 Balance -50 / 1173.333 225 / 225 Weight last 48 hrs Weight 81.012 kg Weight 80.002 kg Weight 68.039 kg Physical Exam 2 Narrative: Generally patient looks well in no apparent distress HEENT normocephalic atraumatic neck neck is supple cardiovascular heart is regular lungs are pretty much clear. Abdomen soft nontender nondistended unremarkable extremities significant for a right great toe amputation due to osteomyelitis neurology has no focality lab studies lab studies reviewed and noted are all within normal CMP CBC blood cultures are negative to date. Data 02/18/25 04:41 02/18/25 04:41 Micro: Microbiology 02/17/25 08:22 Blood Culture - Preliminary Blood NEGATIVE TO DATE 02/17/25 08:20 Blood Culture - Preliminary Blood NEGATIVE TO DATE A&P Assessment and plan 1. Right hallux osteomyelitis: 2. Generalized anxiety disorder: 3. Major depressive disorder, recurrent severe without psychotic features: 4. Alcohol use disorder, moderate, dependence: 5. Plaque psoriasis: Plan: Right hallux osteomyelitis status post amputation On antibiotics Allow podiatry to give the direction as to when to discontinue antibiotics while patient is going home already Based on amputation and the margin - Pain management available for patient Must continue to follow through - Will anticipate patient going home tomorrow, allow podiatry for an input PDMP PDMP Reviewed: Not Reviewed Attestations 2 Medical Necessity Statement*: Patient likely for 1 more day for further optimization today is surgical day 0 Coding Level of Care Code 36239 Diagnoses Right hallux osteomyelitis M86.9 Generalized anxiety disorder F41.1 Major depressive disorder, recurrent severe without psychotic features F33.2 Alcohol use disorder, moderate, dependence F10.20 Plaque psoriasis L40.0 Time Spent (min) 40
--- NOTE | 2025-02-18 17:59 | PM.OP ---
Operative Report Date of procedure: February 18, 2025 Surgeon: Hudson Terry DPM Procedure: Date of procedure: 02/18/2025 Pre-op diagnosis: Right hallux osteomyelitis Post-op diagnosis: Same Post-op findings: Osteomyelitis right hallux Procedure done: Partial amputation right hallux CPT 21636 Implants: None Specimens removed: Right distal hallux, cultures aerobic and anaerobic Surgeon: Dr. Hudson Terry DPM Product Transfer Pumper: Sloan Wiley Estimated blood loss: 5 cc Tourniquet time: 14 minutes Complications: None The patient presents with a severe foot infection involving right hallux, characterized by erythema, swelling, and drainage. The infection is complicated by underlying conditions, including peripheral vascular disease, which have contributed to the progression of the infection despite conservative management. Preoperative imaging and laboratory results indicate osteomyelitis, necessitating surgical intervention. The planned procedure is intended to address the infection, debride necrotic tissue, and, if necessary, assess the viability of surrounding structures to prevent further complications. The patient has been NPO since midnight. The history has been reviewed and the history and physical is current. The signed consent was confirmed and placed in the patient chart. Patient imaging has been reviewed and is consistent with the diagnosis. Under mild sedation, the patient was brought into the operating room and placed on the table in the supine position. Patient is receiving antibiotics around the clock on the floor, Therefore, additional antibiotic prophylaxix was not administered. MAC sedation was then performed by the anesthesiateam. A pneumatic tourniquet was then placed about the right ankle. The operative extremity was then prepped and draped in the usual fashion. After prep, the following procedure was then performed. Attention was directed to the right foot full-thickness ulceration was noted to the hallux interphalangeal joint plantarly. Bone was exposed. 15 blade was used to make a fishmouth incision through the mid hallux. Dissection was carried down to the level of bone at the level of the proximal phalanx. Sagittal bone saw was used to resect the proximal phalanx at the mid diaphysis. Hallux was then passed from the operative field to be sent as surgical specimen. Cultures aerobic and anaerobic were taken of the wound and sent to micro. Site was then irrigated with copious amounts of sterile saline. Remaining bony tissue appeared healthy and viable and free from infection. Hemostasis was achieved via electrocautery. Incision was then reapproximated using 3-0 nylon in simple erupted fashion. Tourniquet was let down good hyperemic response was noted to all remaining digits of the right foot. Incision was dressed with Xeroform, 4 x 4 gauze, Kerlix, Dequan. The patient tolerated the procedure and anesthesia well and without complication. The patient was transported from the operating room to the recovery room with vital signs stable and vascular status intact to all digits of the right foot. Thepatient was instructed to remain minimal weightbearing to the operative extremity, to keep surgical dressing clean, dry and intact. The patient will be transferred back to the floor once anesthesia criteria is met. I will continue to round on and follow the patient in the inpatientsetting and provide recommendations to stabilize the patient for discharge.
[2025-02-19] VITALS (10 sets, daily range): BP systolic 123–187; BP diastolic 75–100; PULSE 65–108; RESP 16–17; TEMP 36.6–36.9; O2SAT 90–99; BMI 27.1
[2025-02-19] MEDS: heparin 5,000 unit/mL INJ 1 mL 5000 UNIT SUBCUT (00:40)
[2025-02-19] MEDS: morphine 4 mg/mL SDV 1 mL IVP ×2 (01:11→06:06)
--- NOTE | 2025-02-19 02:27 | PC.NURSE ---
late entry--- 02/19/2025 @ 0015 provider was notified of elevated BPs and the right foot pain. Morphine given at this time, and Amlodipine will be given if the BPs sustains elevated per order.
[2025-02-19] MEDS: piperacillin-tazobactam 3.375 GM in sodium chloride 0.9% (plus) 50 ML IV (06:07)
--- NOTE | 2025-02-19 06:42 | P.PN_ITS ---
Subjective 2 Subjective: Patient seen at bedside this morning. Patient had been walking around his room leaving a blood trail. Dressing reinforced by nursing staff Vitals/I&O/Wt Last Vital Signs Temp 98.4 F 02/19/25 04:00 Pulse 108 H 02/19/25 04:00 Resp 16 02/19/25 06:06 BP 123/75 02/19/25 04:00 Pulse Ox 90 02/19/25 04:00 O2 Del Method Room Air 02/19/25 04:00 O2 Flow Rate 8 02/18/25 10:37 02/18/25 02/18/25 02/19/25 14:59 22:59 06:59 Intake Total 1830 / 1830 1486.667 / 3316.667 350 / 3666.667 Output Total 1605 / 1605 2400 / 4005 1200 / 5205 Balance 225 / 225 -913.333 / -688.333 -850 / -1538.333 Weight last 48 hrs Weight 178 lb 14.4 oz Weight 178 lb 9.6 oz Weight 176 lb 6 oz Weight 150 lb Physical Exam 2 Narrative: BELOW IS A FOCUSED LOWER EXTREMITY EXAM GENERAL: A&O x 3 VASCULAR: DP/PT pulses palpable 2/4 with CFT intact, <3seconds to distal digits DERMATOLOGICAL: Incision well coapted no evidence of dehiscence or signs of infection. MUSCULOSKELETAL: Pain to palpation of right hallux periwound area NEUROLOGICAL: Neurological sensation to the affected foot and ankle is present through L4-S1 dermatomes with no hyper/hypoesthesias, negative Tinel or Valleix's sign IMAGING: Three-view x-rays right foot obtained in the emergency department show radiopaque foreign body plantar aspect of hallux interphalangeal joint with increased soft tissue density and erosive changes of the hallux interphalangeal joint consistent with osteomyelitis. Data 02/18/25 04:41 02/18/25 04:41 Micro: Microbiology 02/18/25 09:58 Gram Stain - Final Toe - #1 02/17/25 08:22 Blood Culture - Preliminary Blood NEGATIVE TO DATE 02/17/25 08:20 Blood Culture - Preliminary Blood NEGATIVE TO DATE A&P Assessment and plan 1. Right hallux osteomyelitis: Okay to discharge from podiatry standpoint. Discharge instructions below Plan: -Dressing changes: Leave surgical dressing clean, dry, intact -Follow up: Follow-up with Emanuel Reno.P.M. within 7 days of discharge -Weightbearing status: Minimal weightbearing to operative extremity wearing postop shoe -Antibiotics: Recommend discharge with 10 days of broad-spectrum antibiotics such as amoxicillin/clavulanate 875?125 p.o. twice daily -Please contact podiatry clinic at [phone] with any questions regarding patient's discharge PDMP PDMP Reviewed: Not Reviewed Attestations 2 Medical Necessity Statement*: See hospitalist note Coding Level of Care Code Acute Code for Chg Fwd Diagnoses Right hallux osteomyelitis M86.9
--- NOTE | 2025-02-19 09:39 | PC.CHAP ---
Pastoral Care Encounter/Spiritual Assessment Type of Contact [] Declined evaluation assistant visit [] Patient/Family/Request visit [] Outpatient visit [] Follow-up visit [] Physician referral [] Code/Alert [x] Routine visit [] Staff referral [] Actively dying [] Patient sleeping [] Family support [] [] Out of room [] Palliative care [] [] Receiving care in room [] Pre-surgical visit [] Trauma [] Long length of stay [] ICU visit [] Other: Relational/Emotional Strength [] Patient feels connected with others/family/visitors/staff [] Distress [] Loneliness/isolation [] Abandonment Spirituality of Patient [x] Person of Lola [] Attends Faith of their Lola [x Believes in Prayer [] Reads Bible or Roman Catholic materials [] There are Spiritual issues to be addressed Telephone Exchange Operator Interventions [x] Prayer [x] Active listening [] Non-anxious presence [] Spiritual/emotional support [] Crisis/trauma care [] Spiritual counseling [] Bereavement support [] Provided bereavement packet [x] Provided Bible/devotional materials [] Provided toy/stuffed animal, coloring book to patient or family member [] Provided Communion [] Anointing/[place] [] Salvation [x] Completed spiritual assessment [] Other: Impact on Illness or Injury [] Angry [] Fearful [] Anxious [] Often cries [] Exhaustion [] Unable to work [] Unable to attend anabaptist [] Unable to walk/stand [] Unable to read [] Unable to drive [] Unable to eat/drink [] Unable to sleep [] Unable to be with family [] Patient intubated [] Other: Summary Time spent with patient 5 min
--- NOTE | 2025-02-19 11:31 | PC.NURSE ---
This nurse has continuously had to reiterate to the patient to stay off of his foot as much as possible. Every time I am in the room patient is standing up or walking around. Dressing has been reinforced twice at this time. Dr. Terry notified.
--- NOTE | 2025-02-19 11:53 | PC.NURSE ---
Patient's blood pressure has been consistently elevated. Dr. Crisostomo notified.
--- NOTE | 2025-02-19 11:55 | P.DS_ITS ---
Discharge Providers Date of Admission: 02/17/25 08:06 Date of Discharge: February 19, 2025 Attending Provider at Admission: Nicole Crisostomo MD Attending Provider at Discharge: Nicole Crisostomo MD Primary Care Provider: ISAAC Sosa Diagnoses at Discharge Discharge Diagnosis 1. Right hallux osteomyelitis: Reason for Visit Reason for Visit: left great toe infection Hospital Course Hospital Course Pio Manzanares is a 59 year old male who presented to the emergency room today after having had trauma to the right great toe by pulling of a callus off of it 3 months ago. This affected right toe has been bothering the patient and he had not done anything to where it is till today decided to come to the emergency room for further evaluation. It was noted that the patient now has osteomyelitis of the right great toe with foreign body in it. Emergency room physician Dr. Young consulted podiatry who wanted the patient placed on vancomycin and Zosyn and be admitted for surgery will be tomorrow being February 18, 2025 . Patient had gotten a dose of vancomycin and Zosyn and I have at this time assumed the attending physician I had ordered Zosyn and vancomycin to continue but they pharmacy consultation to dose vancomycin with instructions. Patient did not complain of any pain at this time of my rounds. And he knows to be n.p.o. after midnight tonight for anticipated surgery 02/18/2025 Patient status post right hallux amputation because of osteomyelitis. Podiatry documented no sign of infection except for the disease bone that was taken out that is osteomyelitic. Patient had been with Zosyn and vancomycin during over 24 hours in the hospital. At this time patient had been seen on day #1 of surgery yesterday was day #[address] Jama feel patient needs to be discharged today to go home and continue oral antibiotics of Augmentin 875 mg / 125 mg 1 tablet twice daily. Patient was given 1 g/62.5 that is in the system extended release 1 tablet twice daily x 10 days instead. Patient to follow-up with Dr. Jama within 7 days of discharge from today. Patient is to stay off of the foot not to incur much swelling of the surgical area of the right hallux. Anti-inflammatory initiated for this patient on high-dose ibuprofen 800 mg 3 times a day x 5 days only. Patient must take this with meals. It must be added that patient has uncontrolled blood pressure and had been started on Norvasc 5 mg 1 tablet p.o. daily #30. Physical Exam Narrative: Patient is well dressed cannot wait to go home looking well denies any complaint HEENT normocephalic atraumatic neck neck is supple cardiovascular heart rate is regular lungs are pretty much clear abdomen soft nontender nondistended unremarkable extremities are intact no edema has good pulses neurology has no focality lab studies lab studies reviewed and noted. Discharge Data Studies Completed and Pending Completed Studies During Hospitalization Category Date Time Status XR foot LT min 3V* [id number] Stat Exams 02/17/25 07:15 Completed Pending at discharge Category Date Time Status Anaerobic Culture Routine Lab 02/18/25 09:58 Results Blood Culture Stat Lab 02/17/25 08:20 Results Vancomycin Trough Timed Lab 02/19/25 11:00 Ordered Wound Culture and Gram Stain Routine Lab 02/18/25 09:58 Results Pathology: Surgical [PTH] Routine Pth 02/18/25 10:12 Received Radiology Impressions Foot X-Ray 02/17/25 07:15 IMPRESSION: 1. Retained 7 mm curvilinear metallic foreign body in the plantar soft tissues of the 1st digit with surrounding soft tissue gas and swelling as well as small calcifications, likely additional foreign material versus dystrophic change. 2. Mild cortical irregularity of the proximal and distal phalanges of the 1st digit, possibly reactive or infectious. Early osteomyelitis cannot be excluded. 3. Advanced degenerative changes of the 1st IP and MTP joints. 4. MRI and/or surgical evaluation may be warranted based on clinical context. Laboratory Results WBC 7.82 10^3/uL (3.29-11.43) 02/18/25 04:41 RBC 4.79 10^6/uL (3.85-5.65) 02/18/25 04:41 Hgb 14.90 g/dL (11.27-16.99) 02/18/25 04:41 Hct 46.2 % (37-53) 02/18/25 04:41 MCV 96.5 fl (82-101) 02/18/25 04:41 MCH 31.1 pg (27-33) 02/18/25 04:41 MCHC 32.3 g/dL (30-55) 02/18/25 04:41 RDW 13.5 % (12.1-15.1) 02/18/25 04:41 Plt Count 246 10^3/cmm (157-399) 02/18/25 04:41 MPV 10.4 fL (7.4-10.4) 02/18/25 04:41 Neut % (Auto) 69.1 % 02/18/25 04:41 Lymph % (Auto) 19.2 % 02/18/25 04:41 [place] % (Auto) 5.0 % 02/18/25 04:41 Eos % (Auto) 5.8 % 02/18/25 04:41 Baso % (Auto) 0.5 % 02/18/25 04:41 Neut # (Auto) 5.41 10^3/uL (1.8-7.7) 02/18/25 04:41 Lymph # (Auto) 1.5 10^3/uL (0.8-4.8) 02/18/25 04:41 [place] # (Auto) 0.4 10^3/uL (0.2-0.9) 02/18/25 04:41 Eos # (Auto) 0.5 10^3/uL (0.0-0.8) 02/18/25 04:41 Baso # (Auto) 0.0 10^3/uL (0.0-0.1) 02/18/25 04:41 Nucleated RBC % (auto) 0 % 02/18/25 04:41 Nucleated RBCs # 0.0 /100WBC 02/18/25 04:41 ESR 59 mm/hr (0-10) H 02/17/25 07:22 Sodium 141 mmol/L (136-145) 02/18/25 04:41 Potassium 4.4 mmol/L (3.5-5.1) 02/18/25 04:41 Chloride 104 mmol/L (98-107) 02/18/25 04:41 Carbon Dioxide 23 mmol/L (22-29) 02/18/25 04:41 Anion Gap 18.4 (5-19) 02/18/25 04:41 BUN 11 mg/dL (6-20) 02/18/25 04:41 Creatinine 0.8 mg/dL (0.7-1.2) 02/18/25 04:41 GFR Calculation 99.6 mL/min (90-130) 02/18/25 04:41 Glucose 113 mg/dL (65-115) 02/18/25 04:41 Calculated Osmolality 292 mOsm/kg (285-295) 02/18/25 04:41 Lactic Acid 2.1 mmol/L (0.5-2.2) 02/17/25 07:22 Lactic Acid (Sepsis) 1.8 mmol/L (0.5-2.2) 02/17/25 10:57 Calcium 8.6 mg/dL (8.5-10.5) 02/18/25 04:41 Phosphorus 2.9 mg/dL (2.5-4.5) 02/18/25 04:41 Magnesium 2.0 mg/dL (1.7-2.3) 02/18/25 04:41 Total Bilirubin 0.6 mg/dL (0.15-1.2) 02/18/25 04:41 AST 27 U/L (0-40) 02/18/25 04:41 ALT 8 U/L (0-41) 02/18/25 04:41 Alkaline Phosphatase 122 U/L (40-130) 02/18/25 04:41 C-Reactive Protein 30.6 mg/L (0.0-4.9) H 02/17/25 07:22 Total Protein 7.1 g/dL (6.6-8.7) 02/18/25 04:41 Albumin 4.0 g/dL (3.5-5.2) 02/18/25 04:41 Globulin 3.1 g/dL (1.3-4.6) 02/18/25 04:41 Vitals Last Vital Signs Temp 97.8 F 02/19/25 07:48 Pulse 65 02/19/25 07:48 Resp 17 02/19/25 07:48 BP 187/96 02/19/25 07:48 Pulse Ox 99 02/19/25 07:48 O2 Del Method Room Air 02/19/25 07:48 O2 Flow Rate 8 02/18/25 10:37 Discharge Plan Discharge Patient Disposition: Home Condition: Stable Prescriptions: New amlodipine 5 mg Tablet 5 mg PO Q24H Qty: 30 0RF amoxicillin-pot clavulanate [Augmentin XR] 1,000-62.5 mg tablet extended release 12 hr 1 tab PO Q12H 10 Days Qty: 20 0RF ibuprofen 800 mg tablet 800 mg PO Q8H Qty: 14 0RF Continued trazodone 50 mg tablet 100 mg PO .HS PRN (Reason: insomnia) Qty: 60 2RF aripiprazole [Abilify] 2 mg tablet 2 mg PO DAILY Qty: 30 1RF sertraline [Zoloft] 100 mg tablet 150 mg PO DAILY Qty: 45 2RF triamcinolone acetonide 0.1 % ointment 1 applic topical BID PRN (Reason: Skin Irritation) Rx Instructions: Apply to affected area twice daily for 3 weeks. Not for face. Lead Radiation Therapist OK for DC: Podiatry and Hospitalist Discharge Order = DC NOW: Discharge Order (Routine); Ordered 02/19/25 Ordered By: Nicole Crisostomo Referrals: Rosa Wallace FNP-C [Primary Care Provider, Family Practice] Hudson Zayas DPM [Physician, Podiatry] - 03/06/25 1:45 pm Discharge Diet: Usual diet Discharge Activity: Resume usual activity Patient Instructions: Sulfamethoxazole/Trimethoprim (By mouth), Amlodipine (By mouth), Acute Wound Care (DC), Opioid Safety, Post Anesthesia Care, Patient Portal & Artur Instructions Activity Restrictions/Additional Instructions: PODIATRY DISCHARGE INSTRUCTIONS--DR. ZAYAS -Dressing changes: Leave surgical dressing clean, dry, intact -Follow up: Follow-up with Dr. Zayas, D.P.M. within 7 days of discharge -Weightbearing status: Minimal weightbearing to operative extremity wearing postop shoe -Antibiotics: Recommend discharge with 10 days of broad-spectrum antibiotics such as amoxicillin/clavulanate 875?125 p.o. twice daily -Please contact podiatry clinic at [phone] with any questions regarding patient's discharge Discharge Attestations Time Spent in Discharge Care*: less than 30 min Quality Metrics Clinical Quality Measures [ No reported AMI, CVA or VTE this stay] Coding Level of Care Code 50274 Diagnoses Right hallux osteomyelitis M86.9
== END 2025-02-19 12:38 | disposition home or self-care (01) | DRG 504 ==
LOC: ER 07:30 → ER IP 08:16 → MEDSURG 12:25
PROVIDERS: Podiatrist Foot & Ankle Surgery; Admitting Provider Internal Medicine; Emergency Provider Emergency Medicine; PCP Nurse Practitioner Family; Visit Provider Internal Medicine
PROC: 0Y6P0Z1 Detachment at Right 1st Toe, High, Open Approach (ICD-10-PCS; principal; 2025-02-18 09:00)
DX: M86.9 Osteomyelitis, unspecified (principal); F33.2 Major depressive disorder, recurrent severe without psychotic features; F41.1 Generalized anxiety disorder; F10.20 Alcohol dependence, uncomplicated; L40.0 Psoriasis vulgaris; I73.9 Peripheral vascular disease, unspecified; Z87.891 Personal history of nicotine dependence
CPT/HCPCS: 36415; 73630; 80053; 80202; 83605; 83735; 84100; 85025; 85651; 86140; 87040; 87070; 87075; 87077; 87186; 87205; 88305; 88307; 88311; 96365; 96366; 96367; 96372; 99285; J0360; J1100; J1171; J1644; J1885; J2250; J2270; J2371; J2405; J2470; J2543; J2704; J3010; J3372; J3373; J3490; J7030; J9999

== ENCOUNTER → 2025-02-22 11:50 | Outpatient (BNVA) | payer MEDICAID, SELFPAY | PROVIDERS: PCP Nurse Practitioner Family; Visit Provider Nurse Practitioner Family | DX: I10 Essential (primary) hypertension (principal) | CPT/HCPCS: 80053; 80061; 83036; 84443; 85025 ==